=== PATIENT | male | born 1975 | race American Indian/Alaskan Native ===

== ENCOUNTER 2019-01-19 01:53 | Emergency (ER) | payer OTHER, MEDICAID ==
--- NOTE | 2019-01-19 04:30 | XRay Report ---
PROCEDURE: XR SPINE LUMBOSACRAL 2-3V TECHNIQUE: Lumbar spine radiographs, AP, lateral and spot views. HISTORY: lower back pain COMPARISONS: None . FINDINGS: Alignment: Normal . Vertebral body heights/Disk spaces: The heights of the vertebral bodies are maintained. There is slight loss of disc space height at the L3, L3-4 and L4-5 levels. There has been previous sp inal fixation with hardware from the L3 through the L5 vertebral levels. . Fracture(s): None . Facets: Normal . Bone mineralization: Normal . IMPRESSION: There is no evidence of an acute fracture or dislocation. Moderate lumbar spondylosis and degenerative disc changes as. Previous spinal fixation from the L3 th rough the L5 vertebral levels. . This document is electronically signed by Cami Melissa DO., January 19 2019 04:28:02 AM ET
--- NOTE | 2019-01-19 04:31 | XRay Report ---
PROCEDURE: XR KNEE 1-2V RT TECHNIQUE: Right knee radiograph, AP and lateral HISTORY: Right knee pain COMPARISONS: None . FINDINGS: Fracture (s) and/or Dislocation(s): None . Joint space(s): Normal . Soft tissues: Normal . Bone mineralization: Normal . Foreign bodies: None . IMPRESSION: Normal Examination . This document is electronically signed by Cami Melissa DO., January 19 2019 04:29:38 AM ET
[2019-01-19] MEDS ORDERED: IBUPROFEN PO ONE (07:40)
[2019-01-19] MEDS ORDERED: DELTASONE PO ONE (07:40)
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
[2019-01-19 08:17] VITALS: BP 154/94
== END 2019-01-19 08:17 | disposition home or self-care (01) ==
LOC: ED 01:53
DX: S80.01XA Contusion of right knee, initial encounter (principal); M54.5 Low back pain; V89.2XXA Person injured in unspecified motor-vehicle accident, traffic, initial encounter; Y93.89 Activity, other specified; Y92.488 Other paved roadways as the place of occurrence of the external cause; Y99.8 Other external cause status
CPT/HCPCS: 72100; 73560; 99283; J7512